=== PATIENT | female | born 1975 | race Caucasian/White ===

== ENCOUNTER 2016-11-15 19:59 | Outpatient (CLI) | payer MEDICARE, MEDICAID ==
--- OUTSIDE RECORDS SUMMARY | 2016-11-15 20:03 | XMS REPORT | Referral Summary ---
Author Organization Unknown Address Unknown Phone Unavailable Encounter [facility] [id number] Date(s): 09/28/14 - 10/07/14 [facility] [address] [place] [address] Discharge Diagnosis: Hypokalemia Discharge Diagnosis: Hypoglycemia Discharge Diagnosis: Dysphagia Discharge Diagnosis: Nausea & vomiting Discharge Diagnosis: Hiatal hernia Discharge Disposition: Home or Self Care Attending Physician: Chris Angeles MD Admitting Physician: Chris Angeles MD Vital Signs Most recent to 1 oldest [Reference Range]: Temperature Axillary 37.0 degC [35.2-36.7 degC] *HI* (10/07/14 11:43 AM) Temperature Oral 37.3 degC [35.8-37.3 degC] (10/07/14 4:31 AM) Apical Heart Rate 97 bpm [60-100 bpm] (09/29/14 4:01 PM) Peripheral Pulse 112 bpm Rate [60-100 bpm] *HI* (10/07/14 11:43 AM) Heart Rate Monitored 111 bpm [60-100 bpm] *HI* (10/05/14 8:00 AM) Respiratory Rate 18 br/min [14-20 br/min] (10/07/14 11:43 AM) Blood Pressure 100/59 mmHg [90-140/60-90 mmHg] (10/07/14 11:43 AM) Mean Arterial 88 mmHg Pressure, Cuff (10/01/14 8:00 PM) Most recent to 1 oldest [Reference Range]: SpO2 95 % (10/07/14 11:43 AM) Problem List Condition Effective Dates Status Health Status Informant Acute Active pain(Confirmed) Alteration in Active nutrition(Confirmed) 1 At risk for Active aspiration(Confirmed )2 At risk for Active injury(Confirmed)3 At risk of pressure Active sore(Confirmed) 1Problem added automatically by system based on initiation of Alteration in Nutrition Plan of [id number] added automatically by system based on initiation of At Risk for Aspiration Plan of [id number] added automatically by system based on initiation of Risk for Injury Plan of Care Allergies, Adverse Reactions, Alerts Substance Reaction Severity Status meperidine Unknown Active metoclopramide Unknown Active Medications acetaminophen-diphenhydrAMINE 500 mg-25 mg oral tablet 1 tabs, Oral, Bedtime (once a day), 0 Refill(s) Start Date: 09/28/14 Status: Orderedbaclofen 10 mg, Oral, TID, 0 Refill(s) Start Date: 09/28/14 Status: Orderedbenzocaine topical gel See Instructions, Mouth Sores, Apply once every 6 hours as need for mouth sores , # 1 Each, 2 Refill(s), Pharmacy: [facility] Special Instructions: Apply once every 6 hours as need for mouth sores Start Date: 10/07/14 Status: OrderedCeleXA 40 mg, Oral, Daily, 0 Refill(s) Start Date: 09/28/14 Status: OrderedDebrox 6.5% otic solution 5 drops, Ear-Both, qMonth, every month twice daily, 0 Refill(s) Special Instructions: every month twice daily Start Date: 09/28/14 Status: OrderedDepo-Provera 150 mg, IntraMuscular, q3mo, 0 Refill(s) Start Date: 09/28/14 Status: OrderedDetrol LA 2 mg oral capsule, extended release 1 caps, Oral, Daily, 0 Refill(s) Start Date: 09/28/14 Status: OrderedFlintstones Multivitamins 1 tabs, Chewed, Daily, 0 Refill(s) Start Date: 09/28/14 Status: OrderedLidocaine Viscous 2% mucous membrane solution 5 mL, Topical, q6hr, as needed for mouth sore pain, X 28 days, # 560 mL, 3 Refill(s), Pharmacy: [facility] Start Date: 10/07/14 Stop Date: 01/27/15 Status: OrderedMiraLax 8.5 g, Oral, MWF, 0 Refill(s) Start Date: 09/28/14 Status: OrderedPriLOSEC 20 mg, Oral, Daily, 0 Refill(s) Start Date: 09/28/14 Status: OrderedSEROquel 25 mg, Oral, TID, 0 Refill(s) Start Date: 09/28/14 Status: OrderedTheraTears ophthalmic solution 1 drops, Eye-Both, BID, as needed for dry eyes, # 20 Each, 3 Refill(s), Pharmacy : [facility] Start Date: 10/07/14 Stop Date: 02/04/15 Status: Orderedtrihexyphenidyl 2 mg oral tablet 1 tabs, Oral, TID, # 270 Each, 0 Refill(s) Start Date: 09/28/14 Status: OrderedTriple Antibiotic topical ointment 1 nayeli, Topical, BID, 0 Refill(s) Start Date: 09/28/14 Status: OrderedTylenol Caplet 325 mg, Oral, q4hr, as needed for pain, 0 Refill(s) Start Date: 09/28/14 Status: OrderedViactiv Soft Calcium Chews oral tablet, chewable 1 tabs, Oral, Daily, 0 Refill(s) Start Date: 09/28/14 Status: OrderedXanax 0.5 mg, Oral, Daily, as needed for anxiety, 0 Refill(s) Start Date: 09/28/14 Status: OrderedZofran 4 mg oral tablet 1 tabs, Oral, q6hr, as needed for nausea/vomiting, X 30 days, # 120 tabs, 1 Refill(s), Pharmacy: [facility], 1 tabs Oral q6hr,x30 days,PRN:as needed for nausea/vomiting Start Date: 10/07/14 Stop Date: 12/06/14 Status: Ordered Results Blood Gases Most recent to 1 oldest [Reference Range]: pH [7.35-7.45] 7.44 (10/04/14 12:30 PM) pCO2 Art [35-45 36 mmHg mmHg] (10/04/14 12:30 PM) Arterial PO2 [80-100 102 mmHg mmHg] *HI* (10/04/14 12:30 PM) Bicarbonate [22-26 24 mEq/L mEq/L] (10/04/14 12:30 PM) Base Excess Art 0 [0-2] (10/04/14 12:30 PM) SaO2 Art [90.0-97.0 98.1 % %] *HI* (10/04/14 12:30 PM) LPM Art 3.0 L/min (10/04/14 12:30 PM) O2 Panel Nasal Cannula (10/04/14 12:30 PM) Spec Site Femoral-R (10/04/14 12:30 PM) Hematology Most recent to 1 oldest [Reference Range]: WBC [4.8-10.8 K/uL] 6.5 K/uL (10/07/14 5:04 AM) RBC [4.00-5.20 M/uL] 4.89 M/uL (10/07/14 5:04 AM) Hgb [12.0-16.0 13.2 gm/dL gm/dL] (10/07/14 5:04 AM) Hct [37.0-47.0 %] 41.3 % (10/07/14 5:04 AM) MCV [82.0-99.0 fL] 84.5 fL (10/07/14 5:04 AM) MCH [27.0-32.0 pg] 27.0 pg (10/07/14 5:04 AM) MCHC [32.0-36.0 32.0 gm/dL gm/dL] (10/07/14 5:04 AM) RDW [11.5-14.5 %] 13.9 % (10/07/14 5:04 AM) Platelet [150-400 254 K/uL K/uL] (10/07/14 5:04 AM) MPV [9.4-12.4 fL] 11.7 fL (10/07/14 5:04 AM) Immature 0.2 % Granulocytes (10/05/14 5:35 AM) [0.0-1.0 %] Neutrophils [51-75 79 % %] *HI* (10/05/14 5:35 AM) Lymphocytes [20-46 12 % %] *LOW* (10/05/14 5:35 AM) Monocytes [4-11 %] 7 % (10/05/14 5:35 AM) Eosinophils [0-4 %] 3 % (10/05/14 5:35 AM) Basophils [0-2 %] 0 % (10/05/14 5:35 AM) Neutro Absolute 8.37 THOUS [1.90-7.00 THOUS] *HI* (10/05/14 5:35 AM) Lymph Absolute 1.24 THOUS [0.80-3.30 THOUS] (10/05/14 5:35 AM) Wharton Absolute 0.71 THOUS [0.30-1.00 THOUS] (10/05/14 5:35 AM) Eos Absolute 0.30 THOUS [0.00-0.50 THOUS] (10/05/14 5:35 AM) Baso Absolute 0.02 THOUS [0.00-0.20 THOUS] (10/05/14 5:35 AM) Nucleated RBC 0.0 /100 WBC Automated [0 /100 (10/05/14 5:35 AM) WBC] Coagulation Most recent to 1 oldest [Reference Range]: INR [0.9-1.2] 1.4 *HI* (09/29/14 12:00 PM) PTT [25.0-35.0] 29.4 (09/28/14 10:32 PM) Chemistry Most recent to 1 oldest [Reference Range]: Sodium Lvl [136-144 141 mEq/L mEq/L] (10/07/14 5:04 AM) Potassium Lvl 4.1 mEq/L [3.6-5.1 mEq/L] (10/07/14 5:04 AM) Chloride [99-109 107 mEq/L mEq/L] (10/07/14 5:04 AM) CO2 [22-32 mEq/L] 29 mEq/L (10/07/14 5:04 AM) AGAP [3-20] 5 (10/07/14 5:04 AM) BUN [4-20 mg/dL] 3 mg/dL *LOW* (10/07/14 5:04 AM) Glucose Lvl [70-100 110 mg/dL mg/dL] *HI* (10/07/14 5:04 AM) Creatinine Lvl 0.44 mg/dL [0.44-1.03 mg/dL] (10/07/14 5:04 AM) eGFR [>60] >60 3 (10/07/14 5:04 AM) Calcium Lvl 9.4 mg/dL [8.6-10.0 mg/dL] (10/07/14 5:04 AM) Albumin Lvl [3.5-4.8 3.4 gm/dL gm/dL] *LOW* (10/07/14 5:04 AM) Total Protein 6.6 gm/dL [6.1-7.9 gm/dL] (10/05/14 5:35 AM) Globulin [1.9-4.3 3.2 gm/dL gm/dL] (10/05/14 5:35 AM) ALT [14-54 unit/L] 30 unit/L (10/05/14 5:35 AM) AST [15-41 unit/L] 17 unit/L (10/05/14 5:35 AM) Alk Phos [26-104 55 unit/L unit/L] (10/05/14 5:35 AM) Bili Total [0.2-1.2 1.1 mg/dL 2 mg/dL] (10/05/14 5:35 AM) Magnesium Lvl 2.1 mg/dL [1.8-2.5 mg/dL] (10/07/14 5:04 AM) Phosphorus [2.4-4.7 4.0 mg/dL 1 mg/dL] (10/07/14 5:04 AM) Cortisol AM [7-18 31 mcg/dL mcg/dL] *HI* (10/03/14 6:31 AM) Screen, Negative Urine NPT (10/01/14 7:21 PM) Blood Glucose, 105 mg/dL Capillary [70-100 *HI* mg/dL] (10/07/14 6:33 AM) U Beta hCG Ql Negative [Negative] (10/01/14 6:23 AM) TSH with Reflex Free 2.02 T4 [0.35-5.50] (09/28/14 10:32 PM) 1Result Comment: High dosages of liposomal Amphotericin B (AmBisome) therapy or other drug preparations that use a liposomal envelope to facilitate drug delivery may cause falsely elevated results for phosphorus.2Result Comment: Naproxen, specifically the metabolite O-desmethylnaproxen, may cause spurious elevation in Total Bilirubin levels.3Result Comment: Multiply eGFR results by 1.21 for race. Immunizations No data available for this section Procedures Procedure Date Related Diagnosis Body Site Arterial puncture, withdrawal of blood for 10/04/14 diagnosis. Esophagogastroduodenoscopy Biopsy1 10/01/14 1auto-populated from documented surgical case Social History Social History Type Response Smoking Status Never smoker Assessment and Plan Extracted from: Title: hold Author: Bala Chong Date: 10/04/14 pt had dobhoff placement this date
== END 2016-11-16 06:37 | disposition home or self-care (01) ==
LOC: SLEEP 19:59
PROVIDERS: ATTEND Nurse Practitioner Family
DX: G47.33 Obstructive sleep apnea (adult) (pediatric) (principal)
CPT/HCPCS: 95810

== ENCOUNTER → 2016-11-30 | Outpatient (CLI) | payer MEDICARE, MEDICAID ==
[2016-11-30 12:49] LABS: BASOPHILS % (AUTO) 1 % (0-10); EOSINOPHILS # (AUTO) 0.2 10^3/uL (0.0-0.3); EOSINOPHILS % (AUTO) 3 % (0-10); LYMPHOCYTES # (AUTO) 1.4 X 10^3 (1.0-4.0); LYMPHOCYTES % (AUTO) 23 % (12-44); MEAN CORPUSCULAR HEMOGLOBIN 28 PG (25-34); MEAN CORPUSCULAR HGB CONC 32 G/DL (32-36); MEAN CORPUSCULAR VOLUME 86 FL (80-99); MEAN PLATELET VOLUME 11.1 FL (7.4-10.4); MONOCYTES # (AUTO) 0.4 X 10^3 (0.0-1.0); MONOCYTES % (AUTO) 7 % (0-12); NEUTROPHILS # (AUTO) 4.1 X 10^3 (1.8-7.8); NEUTROPHILS % (AUTO) 67 % (42-75); PLATELET COUNT 292 10^3/uL (130-400); RED CELL DISTRIBUTION WIDTH 14.2 % (10.0-14.5); WHITE BLOOD COUNT 6.2 10^3/uL (4.3-11.0)
[2016-11-30 13:08] LABS: ALANINE AMINOTRANSFERASE 11 U/L (0-55); ALBUMIN 4.3 G/DL (3.2-4.5); ANION GAP 12 MMOL/L (5-14); ASPARTATE AMINO TRANSFERASE 24 U/L (5-34); BILIRUBIN,TOTAL 0.4 MG/DL (0.1-1.0); BLOOD UREA NITROGEN 10 MG/DL (7-18); BUN/CREATININE RATIO 14; CALCIUM 9.5 MG/DL (8.5-10.1); CARBON DIOXIDE 22 MMOL/L (21-32); CHLORIDE 107 MMOL/L (98-107); CREATININE SERUM 0.71 MG/DL (0.60-1.30); GFR ESTIMATED > 60; GLUCOSE 87 MG/DL (70-105); POTASSIUM 4.6 MMOL/L (3.6-5.0); SODIUM 141 MMOL/L (135-145); TOTAL PROTEIN 7.5 G/DL (6.4-8.2)
== END ==
LOC: CARD 12:26
PROVIDERS: ATTEND Nurse Practitioner Family
DX: R07.9 Chest pain, unspecified (principal)
CPT/HCPCS: 36415; 80053; 84484; 85025; 93005

== ENCOUNTER → 2017-03-20 | Outpatient (CLI) | payer MEDICARE, MEDICAID ==
--- NOTE | 2017-03-20 17:26 | Diagnostic Imaging Report ---
INDICATION: Pain. Two views were obtained. FINDINGS: There is some volume loss in the left femoral head. 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 There is no fracture. Soft tissues are unremarkable. 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 Dictated by: Dictated on workstation # [id number]
== END ==
LOC: RAD 16:26
PROVIDERS: ATTEND Nurse Practitioner Family
DX: M85.88 Other specified disorders of bone density and structure, other site (principal)
CPT/HCPCS: 73502

== ENCOUNTER 2017-05-04 05:23 | Inpatient (IN) | payer MEDICARE, MEDICAID ==
[~2017-05-04] VITALS: Ht 152.4 cm; Wt 56.0 kg
[2017-05-04] MEDS: NS IV 1000 ML 1,000 ML IV SCH ×5 (06:10→22:26)
[2017-05-04 06:13] LABS: BASOPHILS % (AUTO) 0 % (0-10); EOSINOPHILS # (AUTO) 0.2 10^3/uL (0.0-0.3); EOSINOPHILS % (AUTO) 1 % (0-10); LYMPHOCYTES # (AUTO) 0.4 X 10^3 (1.0-4.0); LYMPHOCYTES % (AUTO) 3 % (12-44); MEAN CORPUSCULAR HEMOGLOBIN 27 PG (25-34); MEAN CORPUSCULAR HGB CONC 32 G/DL (32-36); MEAN CORPUSCULAR VOLUME 85 FL (80-99); MEAN PLATELET VOLUME 11.5 FL (7.4-10.4); MONOCYTES # (AUTO) 0.5 X 10^3 (0.0-1.0); MONOCYTES % (AUTO) 4 % (0-12); NEUTROPHILS # (AUTO) 12.2 X 10^3 (1.8-7.8); NEUTROPHILS % (AUTO) 91 % (42-75); PLATELET COUNT 297 10^3/uL (130-400); RED BLOOD COUNT 5.71 10^6/uL (4.35-5.85); RED CELL DISTRIBUTION WIDTH 13.9 % (10.0-14.5); WHITE BLOOD COUNT 13.3 10^3/uL (4.3-11.0)
[2017-05-04] MEDS ORDERED: ONDANSETRON 4 MG/2 ML (SDV) Z0FRAN IVP ONE (06:15)
--- NOTE | 2017-05-04 06:22 | ED Abdominal Pain ---
General Chief Complaint: Abdominal/GI Problems Stated Complaint: VOMITING,DIARRHEA Source of Information: Patient, Caregiver Exam Limitations: Physical Impairments History of Present Illness Time Seen By Provider: 06:18 Initial Comments This 42-year-old white female presents with a history from the [facility] of vomiting and diarrhea that began last night. The history is limited by the patient's speech and I have a difficult time understanding the patient. However the caregiver relates that the patient has had no associated significant fever or chill, throwing up of blood or blood in the stool. The patient took a Zofran which she promptly vomited at the [facility]. There is been no significant change in the patient's medications or diet. Patient has had 4 episodes of emesis and diarrhea. Allergies and Home Medications Allergies Coded Allergies: meperidine (Verified Adverse Reaction, Unknown, 05/04/17) metoclopramide (Verified Adverse Reaction, Unknown, 05/04/17) nitrofurantoin (Verified Adverse Reaction, Unknown, 05/04/17) Uncoded Allergies: SULFA (Adverse Reaction, Unknown, 05/04/17) Review of Systems Constitutional: No chills, No fever EENTM: No Blurred Vision Respiratory: Denies Cough Cardiovascular: Denies Chest Pain Gastrointestinal: Denies Abdomen Distended, Denies Abdominal Pain, Diarrhea, Nausea, Vomiting Genitourinary: Denies Burning, Denies Frequency Musculoskeletal: No back pain Skin: No rash Psychiatric/Neurological: No Symptoms Reported Endocrine: No Symptoms Reported Hematologic/Lymphatic: No Symptoms Reported Past Aitbslw-Oiwoma-Oplkec Hx Patient Social History Recent Foreign Travel: No Contact w/Someone Who Travel: No Reviewed Nursing Assessment Reviewed/Agree w Nursing PMH: Yes Physical Exam Vital Signs VS - Last 72 Hours, by Label 05/04/17 05:43 Temp 97.8 Pulse 109 Resp 20 B/P (MAP) 114/80 Pulse Ox 100 O2 Delivery Room Air Capillary Refill : General Appearance: WD/WN, mild distress HEENT: normal ENT inspection Neck: supple, normal inspection Respiratory: lungs clear, normal breath sounds Cardiovascular: regular rate, rhythm, no murmur Gastrointestinal: normal bowel sounds, non tender, soft, No guarding Extremities: normal range of motion, non-tender, normal inspection Back: normal inspection Neurologic/Psychiatric: other (cerebral palsy and paraplegia.) Skin: normal color, warm/dry Progress/Results/Core Measures Results/Orders Lab Results Laboratory Tests Test 05/04/17 05:57 Range/Units White Blood Count 13.3 H 4.3-11.0 10^3/uL Red Blood Count 5.71 4.35-5.85 10^6/uL Hemoglobin 15.3 11.5-16.0 G/DL Hematocrit 49 35-52 % Mean Corpuscular Volume 85 80-99 FL Mean Corpuscular Hemoglobin 27 25-34 PG Mean Corpuscular Hemoglobin Concent 32 32-36 G/DL Red Cell Distribution Width 13.9 10.0-14.5 % Platelet Count 297 130-400 10^3/uL Mean Platelet Volume 11.5 H 7.4-10.4 FL Neutrophils (%) (Auto) 91 H 42-75 % Lymphocytes (%) (Auto) 3 L 12-44 % Monocytes (%) (Auto) 4 0-12 % Eosinophils (%) (Auto) 1 0-10 % Basophils (%) (Auto) 0 0-10 % Neutrophils # (Auto) 12.2 H 1.8-7.8 X 10^3 Lymphocytes # (Auto) 0.4 L 1.0-4.0 X 10^3 Monocytes # (Auto) 0.5 0.0-1.0 X 10^3 Eosinophils # (Auto) 0.2 0.0-0.3 10^3/uL Basophils # (Auto) 0.0 0.0-0.1 10^3/uL Neutrophils % (Manual) 82 % Lymphocytes % (Manual) 4 % Monocytes % (Manual) 5 % Eosinophils % (Manual) 3 % Band Neutrophils 6 % Blood Morphology Comment NORMAL Sodium Level 144 135-145 MMOL/L Potassium Level 4.1 3.6-5.0 MMOL/L Chloride Level 109 H 98-107 MMOL/L Carbon Dioxide Level 21 21-32 MMOL/L Anion Gap 14 5-14 MMOL/L Blood Urea Nitrogen 15 7-18 MG/DL Creatinine 0.74 0.60-1.30 MG/DL Estimat Glomerular Filtration Rate > 60 BUN/Creatinine Ratio 20 Glucose Level 135 H 70-105 MG/DL Calcium Level 9.6 8.5-10.1 MG/DL Total Bilirubin 0.6 0.1-1.0 MG/DL Aspartate Amino Transf (AST/SGOT) 24 5-34 U/L Alanine Aminotransferase (ALT/SGPT) 11 0-55 U/L Alkaline Phosphatase 82 40-136 U/L Total Protein 8.2 6.4-8.2 GM/DL Albumin 4.5 3.2-4.5 GM/DL Lipase 899 H 8-78 U/L My Orders Orders - DEAN WIGGINS MD Cbc With Automated Diff (05/04/17 06:03) Comprehensive Metabolic Panel (05/04/17 06:03) Lipase (05/04/17 06:03) Ns Iv 1000 Ml (Sodium Chloride 0.9%) (05/04/17 06:15) Ondansetron Injection (Zofran Injectio (05/04/17 06:15) Manual Differential (05/04/17 05:57) Ct Abdomen/Pelvis W (05/04/17 07:21) Fentanyl Injection (Sublimaze Injection (05/04/17 07:30) Iohexol Injection (Omnipaque 350 Mg/Ml 1 (05/04/17 08:00) Ns (Ivpb) (Sodium Chloride 0.9% Ivpb Bag (05/04/17 08:00) Medications Given in ED Current Medications Medications Dose Ordered Sig/Barbara Route Start Time Stop Time Status Last Admin Dose Admin Fentanyl Citrate 50 mcg ONCE ONCE IVP 05/04/17 07:30 05/04/17 07:31 DC 05/04/17 08:05 50 MCG Iohexol 100 ml ONCE ONCE IV 05/04/17 08:00 05/04/17 08:13 DC 05/04/17 07:52 100 ML Ondansetron HCl 4 mg ONCE ONCE IVP 05/04/17 06:15 05/04/17 06:16 DC 05/04/17 06:10 4 MG Sodium Chloride 80 ml ONCE ONCE IV 05/04/17 08:00 05/04/17 08:13 DC 05/04/17 07:52 80 ML Vital Signs/I&O Vital Sign - Last 12Hours 05/04/17 05:43 Temp 97.8 Pulse 109 Resp 20 B/P (MAP) 114/80 Pulse Ox 100 O2 Delivery Room Air Progress Note : Time: 07:22 Progress Note The patient's laboratory evaluation of a leukocytosis and a lipase of 900. A CT of the abdomen and pelvis were ordered. The patient has received IV fluids, fentanyl, and ondansetron. Patient's CT of the abdomen and pelvis filled them and see evidence of acute pathology. Air-fluid levels suggestive of a viral gastroenteritis were noted. Telephone consultation Dr. Chaves agent was admitted for further evaluation and care. Departure Communication Time/Spoke to Admitting Phy: 09:[address] Chaves. Impression Impression: Primary Impression: Pancreatitis Qualified Codes: K85.90 - Acute pancreatitis without necrosis or infection, unspecified Additional Impression: Vomiting and diarrhea Disposition: ADMITTED INPATIENT Condition: Improved Admissions Decision to Admit Reason: Admit from ER (General) Decision to Admit/Date: May 04, 2017 Time/Decision to Admit Time: 09:26 Departure-Patient Inst. Referrals: RICKY CHAVES MD (PCP/Family) Primary Care Physician DEAN WIGGINS MD May 04, 2017 06:22
[2017-05-04 06:23] LABS: ALANINE AMINOTRANSFERASE 11 U/L (0-55); ALBUMIN 4.5 GM/DL (3.2-4.5); ANION GAP 14 MMOL/L (5-14); ASPARTATE AMINO TRANSFERASE 24 U/L (5-34); BILIRUBIN,TOTAL 0.6 MG/DL (0.1-1.0); BLOOD UREA NITROGEN 15 MG/DL (7-18); BUN/CREATININE RATIO 20; CALCIUM 9.6 MG/DL (8.5-10.1); CARBON DIOXIDE 21 MMOL/L (21-32); CHLORIDE 109 MMOL/L (98-107); CREATININE SERUM 0.74 MG/DL (0.60-1.30); GFR ESTIMATED > 60; GLUCOSE 135 MG/DL (70-105); LIPASE 899 U/L (8-78); POTASSIUM 4.1 MMOL/L (3.6-5.0); SODIUM 144 MMOL/L (135-145); TOTAL PROTEIN 8.2 GM/DL (6.4-8.2)
[2017-05-04 06:30] LABS: BAND NEUTROPHILS 6 %; EOSINOPHILS % (MANUAL) 3 %; LYMPHOCYTES % (MANUAL) 4 %; NEUTROPHILS % (MANUAL) 82 %
[2017-05-04] MEDS ORDERED: fentaNYL INJECTION 100 MCG/2 ML AMP IVP ONE (07:30)
[2017-05-04] MEDS ORDERED: IOHEXOL 350 MG/ML 100 ML (OMNIPAQUE 350) VIAL IV ONE (08:00)
[2017-05-04] MEDS ORDERED: NS 100 ML (IVPB) BAG IV ONE (08:00)
--- NOTE | 2017-05-04 08:21 | Diagnostic Imaging Report ---
PROCEDURE: CT abdomen and pelvis with contrast. TECHNIQUE: Multiple contiguous axial images were obtained through the abdomen and pelvis after administration of intravenous contrast. INDICATION: Abdominal pain. Diarrhea. Vomiting. FINDINGS: The liver, gallbladder, and bile ducts are normal. The spleen, pancreas, and adrenals are normal. The kidneys, ureters, and bladder are normal. There are air and fluid-filled loops of small bowel with minimal bowel wall edema suggestive of an enteritis with no evidence of obstruction or perforation evident at this time. There is some fluid in the colon consistent with diarrhea. No edema of the colon is seen. There is a hiatal hernia present. There is no free intraperitoneal air or fluid. IMPRESSION: There are multiple fluid-filled loops of small bowel with some bowel wall edema suggestive of a nonobstructive enteritis. Dictated by: Dictated on workstation # [id number]
[2017-05-04 11:20] VITALS: BP 109/56
--- NOTE | 2017-05-04 12:23 | History & Physicial ---
History of Present Illness History of Present Illness Reason for visit/HPI PT REPORTS THAT SHE STARTED TO FEEL POORLY YESTERDAY EVENING. SHE REPORTS THAT SHE HAD STOMACH UPSET, STARTED BURPING A LOT YESTERDAY EVENING AND THEN HAD COPIOUS AMOUNTS OF EMESIS AND A FEW EPISODES OF DIARRHEA. SHE HAD SIGNIFICANT ABDOMINAL PAIN AND WAS ADMITTED TO THE HOSPITAL AFTER FINDING OUT THAT HER LIPASE LEVELS WERE ELEVATED. Date of Admission May 04, 2017 at 09:30 Date Seen by Provider: May 04, 2017 Time Seen by Provider: 12:30 I consulted on this patient on 05/04/17 12:23 Attending Physician Ricky Chaves MD Admitting Physician Ricky Chaves MD Consult Allergies and Home Medications Allergies Coded Allergies: meperidine (Verified Adverse Reaction, Unknown, 05/04/17) metoclopramide (Verified Adverse Reaction, Unknown, 05/04/17) nitrofurantoin (Verified Adverse Reaction, Unknown, 05/04/17) Uncoded Allergies: SULFA (Adverse Reaction, Unknown, 05/04/17) Home Medications Acetaminophen 500 Mg Tablet, 1,000 MG PO for PAIN-MILD, (Reported) Acetaminophen/Diphenhydramine 1 Each Tablet, 1 EACH PO HS PRN for SLEEP, ( Reported) Albuterol Sulfate 2.5 Mg/3 Ml Vial.neb, 2.5 MG IH Q4H, (Reported) Alprazolam 0.5 Mg Tablet, 0.5 MG PO for ANXIETY, (Reported) Baclofen 10 Mg Tablet, 10 MG PO TID, (Reported) Buspirone HCl 7.5 Mg Tablet, 7.5 MG PO BID, (Reported) Cetirizine HCl 10 Mg Tablet, 10 MG PO DAILY, (Reported) Citalopram Hydrobromide 40 Mg Tablet, 40 MG PO DAILY, (Reported) Famotidine 20 Mg Tablet, 20 MG PO DAILY, (Reported) Furosemide 20 Mg Tablet, 20 MG PO q72 PRN for fluid overload, (Reported) Ondansetron HCl 4 Mg Tab, 4 MG PO Q6H PRN for NAUSEA/VOMITING-1ST LINE, ( Reported) Pantoprazole Sodium 20 Mg Tablet.dr, 20 MG PO DAILY, (Reported) Tizanidine HCl 2 Mg Capsule, 2 MG PO BID, (Reported) Tramadol HCl 50 Mg Tablet, 50 MG PO BID PRN for PAIN-MODERATE, (Reported) Trihexyphenidyl HCl 2 Mg Tablet, 2 MG PO TID, (Reported) Past Bvmiboj-Nmgipv-Gbvvua Hx Patient Social History Marrital Status: Number of Children: 0 Number of living children: 0 Living Status: LIVES AT [place] WITH HER SPOUSE Employed/Student: unemployed Alcohol Use: Denies Use Recreational Drug Use: No Smoking Status: Never a Smoker 2nd Hand Smoke Exposure: No Physical Abuse Screen: No Sexual Abuse: No Recent Foreign Travel: No Contact w/other who traveled: No Recent Hopitalizations: No Recent Infectious Disease Expo: No Immunizations Up To Date Date of Pneumonia Vaccine: Jul 23, 2016 Date of Influenza Vaccine: Jul 23, 2016 Seasonal Allergies Seasonal Allergies: Yes Surgeries No Respiratory No Currently Using CPAP: No Currently Using BIPAP: No Cardiovascular No Neurological Yes Cerebral Palsy, Paralysis Reproductive System : No Hx Reproductive Disorders: No Sexually Transmitted Disease: No HIV/AIDS: No Female Reproductive Disorders: Denies Genitourinary Yes (overactive bladder) Gastrointestinal Yes (nausea and vomiting) Gastroesophageal Reflux, Chronic Constipation Musculoskeletal Yes Contracture Endocrine History of Endocrine Disorders: No Are Your Blood Sugars Over 250: No HEENT History of HEENT Disorders: No Loss of Vision: Denies Hearing Impairment: Denies Cancer No Psychosocial History of Psychiatric Problem: Yes Behavioral Health Disorders: Sleep Difficulties, Anxiety, Depression Integumentary History of Skin or Integumenta: Yes (Rash) Blood Transfusions History of Blood Disorders: No Reviewed Nursing Assessment Reviewed/Agree w Nursing PMH: Yes Family Medical History Significant Family History: Hypertension Constitutional: No chills, No fever, malaise, weakness EENTM: No mouth pain, No throat pain Respiratory: No cough, No dyspnea on exertion, No short of breath Cardiovascular: No chest pain, No palpitations Gastrointestinal: RUQ, LUQ, abdominal pain, diarrhea, nausea, vomiting Genitourinary: no symptoms reported Musculoskeletal: No back pain Skin: no symptoms reported Psychiatric/Neurological: Denies Anxiety, Denies Depressed All Other Systems Reviewed Negative Unless Noted: Yes Physical Exam Vital Signs Vital Sign - Last 12Hours 05/04/17 05:43 Temp 97.8 Pulse 109 Resp 20 B/P (MAP) 114/80 Pulse Ox 100 O2 Delivery Room Air Capillary Refill : Less Than 3 Seconds General Appearance: No Apparent Distress, WD/WN HEENT: PERRL/EOMI Neck: Supple Respiratory: Chest Non Tender, Lungs Clear, Normal Breath Sounds Cardiovascular: Regular Rate, Rhythm, No Edema Gastrointestinal: Abnormal Bowel Sounds (DECREASED BOWEL SOUNDS), Tenderness Rectal: Deferred Extremity: Normal Capillary Refill, Non Tender, No Calf Tenderness, No Pedal Edema Neurologic/Psychiatric: Alert, Oriented x3, No Motor/Sensory Deficits, Normal Mood/Affect Skin: Warm/Dry Lymphatic: No Adenopathy Assessment/Plan Assessment and Plan LEUKOCYTOSIS PANCREATITIS ENTERITIS FEVER DIARRHEA CEREBRAL PALSY CONTRACTURES LEUKOCYTOSIS WITH PANCREATITIS - CONTINUE WITH SUPPORTIVE CARE, NPO EXCEPT FOR ICE CHIPS. CONTINUE WITH IV FLUIDS. ENTERITIS - IMPROVED WITH ZOFRAN, PHENERGAN, IV FLUIDS. FEVER - TYLENOL PRN FOR FEVER. DIARRHEA - IMPROVED. CEREBRAL PALSY - WITH CONTRACTURES - RESTARTED BACLOFEN DVT PROPHYLAXIS WITH LOVENOX AND SCD'S GI PROPHYLAXIS WITH PROTONIX Problems: Admission Diagnosis LEUKOCYTOSIS PANCREATITIS ENTERITIS FEVER DIARRHEA CEREBRAL PALSY CONTRACTURES Clinical Quality Measures DVT/VTE Risk/Contraindication: Risk Factor Score Per Nursin RFS Level Per Nursing on Admit: 4+=Very High RICKY CHAVES MD May 04, 2017 12:23
[2017-05-04] MEDS ORDERED: ALBU2.5V4 IH (12:24)
[2017-05-04] MEDS ORDERED: BACL10TA PO (12:24)
[2017-05-04] MEDS ORDERED: ACET-77 PO (12:24)
[2017-05-04] MEDS ORDERED: ALPR0.5T PO ×2 (12:24→12:35)
[2017-05-04] MEDS ORDERED: ACET-93 PO (12:35)
[2017-05-04] MEDS ORDERED: FURO-125 PO (12:36)
[2017-05-04] MEDS ORDERED: CETI-343 PO (12:36)
[2017-05-04] MEDS ORDERED: PANT20TA2 PO (12:36)
[2017-05-04] MEDS ORDERED: TIZA2CAP9 PO (12:36)
[2017-05-04] MEDS ORDERED: TRAM50TA2 PO (12:36)
[2017-05-04] MEDS ORDERED: CITA40TA19 PO (12:36)
[2017-05-04] MEDS ORDERED: BUSP7.5T5 PO (12:36)
[2017-05-04] MEDS ORDERED: [UNRECOGNIZED DRUG - CODE] PO (12:36)
[2017-05-04] MEDS ORDERED: TRIH2TAB2 PO (12:36)
[2017-05-04] MEDS ORDERED: FAMO20TA3 PO (12:36)
[2017-05-04] MEDS ORDERED: ONDN4T PO (12:36)
[2017-05-04] MEDS: ONDANSETRON 4 MG/2 ML (SDV) Z0FRAN IV PRN ×2 (13:59→21:22)
[2017-05-04] MEDS ORDERED: ALPRAZolam 0.5 MG (XANAX) TAB PO PRN (15:15)
[2017-05-04] MEDS ORDERED: FUROSEMIDE 20 MG (LASIX) TAB PO PRN (15:15)
[2017-05-04] MEDS ORDERED: ACETAMINOPHEN 500 MG TAB (TYLENOL) PO PRN (15:15)
[2017-05-04] MEDS ORDERED: ONDANSETRON 4 MG (ZOFRAN) ORAL DISSOLVE TAB PO PRN (15:15)
[2017-05-04 15:55] VITALS: BP 110/68
[2017-05-04] MEDS ORDERED: RT-ALBUTEROL SULF 2.5 MG/3 ML PRE-MIX VIAL IH SCH (18:00)
[2017-05-04 20:00] VITALS: BP 131/80
[2017-05-04] MEDS: PROMETHAZINE INJ 25 MG/ML (PHENERGAN) AMP IVP PRN (22:26)
[2017-05-04] MEDS: fentaNYL INJECTION 100 MCG/2 ML AMP IV PRN (22:28)
[2017-05-04] MEDS: TRIHEXYPHENIDYL 2 MG (ARTANE) TAB PO SCH (22:32)
[2017-05-04] MEDS: busPIRone 15 MG (BUSPAR) TABLET PO SCH (22:33)
[2017-05-04] MEDS: BACLOFEN 10 MG (LIORESAL) TAB PO SCH (22:33)
[2017-05-05] VITALS: BP 117/57
[2017-05-05 04:00] VITALS: BP 148/63
[2017-05-05 05:15] LABS: BASOPHILS % (AUTO) 1 % (0-10); EOSINOPHILS % (AUTO) 1 % (0-10); LYMPHOCYTES # (AUTO) 0.7 X 10^3 (1.0-4.0); LYMPHOCYTES % (AUTO) 15 % (12-44); MEAN CORPUSCULAR HEMOGLOBIN 27 PG (25-34); MEAN CORPUSCULAR HGB CONC 32 G/DL (32-36); MEAN CORPUSCULAR VOLUME 86 FL (80-99); MEAN PLATELET VOLUME 12.2 FL (7.4-10.4); MONOCYTES # (AUTO) 0.6 X 10^3 (0.0-1.0); MONOCYTES % (AUTO) 13 % (0-12); NEUTROPHILS # (AUTO) 3.1 X 10^3 (1.8-7.8); NEUTROPHILS % (AUTO) 71 % (42-75); PLATELET COUNT 209 10^3/uL (130-400); RED BLOOD COUNT 4.33 10^6/uL (4.35-5.85); RED CELL DISTRIBUTION WIDTH 13.8 % (10.0-14.5); WHITE BLOOD COUNT 4.4 10^3/uL (4.3-11.0)
[2017-05-05 05:39] LABS: ALANINE AMINOTRANSFERASE 7 U/L (0-55); ALBUMIN 3.2 GM/DL (3.2-4.5); ANION GAP 11 MMOL/L (5-14); ASPARTATE AMINO TRANSFERASE 18 U/L (5-34); BILIRUBIN,TOTAL 0.4 MG/DL (0.1-1.0); BLOOD UREA NITROGEN 6 MG/DL (7-18); BUN/CREATININE RATIO 10; CALCIUM 8.1 MG/DL (8.5-10.1); CARBON DIOXIDE 19 MMOL/L (21-32); CHLORIDE 113 MMOL/L (98-107); CREATININE SERUM 0.58 MG/DL (0.60-1.30); GFR ESTIMATED > 60; GLUCOSE 88 MG/DL (70-105); LIPASE 19 U/L (8-78); SODIUM 143 MMOL/L (135-145); TOTAL PROTEIN 5.6 GM/DL (6.4-8.2)
[2017-05-05] MEDS: ONDANSETRON 4 MG/2 ML (SDV) Z0FRAN IV PRN (06:44)
[2017-05-05] MEDS: fentaNYL INJECTION 100 MCG/2 ML AMP IV PRN (06:49)
[2017-05-05 08:20] VITALS: BP 122/76
[2017-05-05] MEDS: PROMETHAZINE INJ 25 MG/ML (PHENERGAN) AMP IVP PRN ×2 (09:15→18:58)
[2017-05-05] MEDS: BACLOFEN 10 MG (LIORESAL) TAB PO SCH ×3 (09:15→21:35)
[2017-05-05] MEDS: PANTOPRAZOLE 20 MG TABLET (PROTONIX) PO SCH (09:15)
[2017-05-05] MEDS: TRIHEXYPHENIDYL 2 MG (ARTANE) TAB PO SCH ×3 (09:15→21:35)
[2017-05-05] MEDS: busPIRone 15 MG (BUSPAR) TABLET PO SCH ×2 (09:15→21:35)
[2017-05-05] MEDS: LORATADINE (CLARITIN) 10 MG TAB PO SCH (09:16)
[2017-05-05] MEDS: FAMOTIDINE 20 MG (PEPCID) TABLET PO SCH (09:16)
[2017-05-05] MEDS: NS IV 1000 ML 1,000 ML IV SCH (09:18)
[2017-05-05] MEDS ORDERED: POTASSIUM CHLORIDE INJ 20 MEQ in NS IV 1000 ML 1,000 ML IV SCH (09:19)
--- NOTE | 2017-05-05 09:19 | Progress Note (SOAP) ---
Subjective Date Seen by Provider: May 05, 2017 Time Seen by Provider: 10:15 Subjective/Events-last exam PT REPORTS THAT SHE IS FEELING BETTER, SHE DENIES CHEST PAIN, SHORTNESS OF BREATH, SHE DOES HAVE SOME ABDOMINAL DISCOMFORT, BUT IT HAS IMPROVED Review of Systems General: Fatigue HEENT: No Head Aches Pulmonary: No Dyspnea Cardiovascular: No: Chest Pain Gastrointestinal: Diarrhea, No: Nausea Neurological: Weakness, No: Confusion Objective Exam Vital Signs Date Time Temp Pulse Resp B/P (MAP) Pulse Ox O2 Delivery O2 Flow Rate FiO2 05/05/17 08:20 97.6 93 18 122/76 94 Room Air 05/05/17 04:00 98.8 104 20 148/63 96 Room Air 05/05/17 00:00 99.0 94 20 117/57 97 Room Air 05/04/17 20:00 100.3 100 24 131/80 96 Room Air 05/04/17 15:55 100.8 107 22 110/68 99 Room Air 05/04/17 11:20 100.3 100 109/56 97 Room Air 05/04/17 11:08 97.8 100 20 100 Room Air Capillary Refill : Less Than 3 Seconds General Appearance: No Apparent Distress, WD/WN HEENT: PERRL/EOMI, Pharynx Normal Neck: Full Range of Motion, Supple Respiratory: Chest Non Tender, Lungs Clear, Normal Breath Sounds Cardiovascular: Regular Rate, Rhythm Gastrointestinal: normal bowel sounds, non tender, soft Extremity: No Pedal Edema Neurologic/Psychiatric: Alert, Oriented x3, No Motor/Sensory Deficits, Normal Mood/Affect Skin: Warm/Dry Lymphatic: No Adenopathy Results Lab Laboratory Tests 05/05/17 04:06: White Blood Count 4.4, Red Blood Count 4.33L, Hemoglobin 11.8#, Hematocrit 37, Mean Corpuscular Volume 86, Mean Corpuscular Hemoglobin 27, Mean Corpuscular Hemoglobin Concent 32, Red Cell Distribution Width 13.8, Platelet Count 209, Mean Platelet Volume 12.2H, Neutrophils (%) (Auto) 71, Lymphocytes (%) (Auto) 15 , Monocytes (%) (Auto) 13H, Eosinophils (%) (Auto) 1, Basophils (%) (Auto) 1, Neutrophils # (Auto) 3.1, Lymphocytes # (Auto) 0.7L, Monocytes # (Auto) 0.6, Eosinophils # (Auto) 0.0, Basophils # (Auto) 0.0, Sodium Level 143, Potassium Level 3.0L, Chloride Level 113H, Carbon Dioxide Level 19L, Anion Gap 11, Blood Urea Nitrogen 6L, Creatinine 0.58L, Estimat Glomerular Filtration Rate > 60, BUN /Creatinine Ratio 10, Glucose Level 88, Calcium Level 8.1L, Total Bilirubin 0.4 , Aspartate Amino Transf (AST/SGOT) 18, Alanine Aminotransferase (ALT/SGPT) 7, Alkaline Phosphatase 58, Total Protein 5.6L, Albumin 3.2, Lipase 19 Microbiology 05/04/17 C. difficile GDH Antigen & Toxins - Final, Complete Assessment/Plan Assessment/Plan Assess & Plan/Chief Complaint LEUKOCYTOSIS PANCREATITIS ENTERITIS FEVER DIARRHEA CEREBRAL PALSY CONTRACTURES HYPOKALEMIA LEUKOCYTOSIS WITH PANCREATITIS - LIPASE NOW NORMAL - CONTINUE WITH SUPPORTIVE CARE, NPO EXCEPT FOR ICE CHIPS. CONTINUE WITH IV FLUIDS. ENTERITIS - IMPROVED WITH ZOFRAN, PHENERGAN, IV FLUIDS. - MONITOR SYMPTOMS, MAY BE ABLE TO GET PATIENT BACK HOME TOMORROW FEVER - TYLENOL PRN FOR FEVER. DIARRHEA - IMPROVED. CEREBRAL PALSY - WITH CONTRACTURES - RESTARTED BACLOFEN HYPOKALEMIA - REPLENISH WITH ORAL AND IV POTASSIUM DVT PROPHYLAXIS WITH LOVENOX AND SCD'S GI PROPHYLAXIS WITH PROTONIX Clinical Quality Measures DVT/VTE Risk/Contraindication: Risk Factor Score Per Nursin RFS Level Per Nursing on Admit: 4+=Very High RICKY MALLOY MD May 05, 2017 09:19
[2017-05-05] MEDS ORDERED: KCL 10 MEQ TAB (MICRO K) PO NR (09:30)
[2017-05-05] MEDS: NS W/KCL 20 MEQ/L 1,000 ML IV SCH ×2 (10:36→23:43)
[2017-05-05] MEDS ORDERED: ALOE170G TP (15:24)
[2017-05-05] MEDS ORDERED: CARB15DR58 OU ×2 (15:24→15:44)
[2017-05-05] MEDS ORDERED: PSYL1PAC10 PO (15:24)
[2017-05-05] MEDS ORDERED: DICL100G18 TP (15:24)
[2017-05-05] MEDS ORDERED: CARB15DR51 EACH EAR (15:24)
[2017-05-05] MEDS ORDERED: L.AC1CAP6 PO (15:24)
[2017-05-05] MEDS ORDERED: PROP10DR2 OU (15:24)
[2017-05-05] MEDS ORDERED: BISA10SU6 RC (15:24)
[2017-05-05] MEDS ORDERED: TOLT2TAB5 PO (15:24)
[2017-05-05] MEDS ORDERED: LIDO15SO2 MM (15:24)
[2017-05-05] MEDS ORDERED: ZINC57OI4 TP (15:24)
[2017-05-05] MEDS ORDERED: MEDR150V4 IM (15:24)
[2017-05-05 15:37] VITALS: BP 112/72
[2017-05-05 16:13] VITALS: BP 114/67
[2017-05-05] MEDS ORDERED: BISACODYL 10 MG SUPP (DULCOLAX) PR PRN (20:30)
[2017-05-05] MEDS ORDERED: ALPRAZolam 0.5 MG (XANAX) TAB PO PRN (20:30)
[2017-05-05] MEDS ORDERED: ACETAMINOPHEN 500 MG TAB (TYLENOL) PO PRN (20:30)
[2017-05-05] MEDS ORDERED: RT-ALBUTEROL SULF 2.5 MG/3 ML PRE-MIX VIAL IH PRN (20:30)
[2017-05-05] MEDS ORDERED: CARBAM PEROX/GLYC/PROP 15 ML DROPS (DEBROX) OT SCH (20:45)
[2017-05-05] MEDS ORDERED: VISCOUS PO PRN (20:45)
[2017-05-05] MEDS ORDERED: PSYLLIUM POWDER (METAMUCIL) 5.8 GM PACKET PO PRN (20:45)
[2017-05-05] MEDS ORDERED: LIDOCAINE 2% PO PRN (20:45)
[2017-05-05] MEDS ORDERED: ZINC OXIDE 16% OINT (BUTT PASTE) 113 GM TUBE TOP PRN (20:45)
[2017-05-05] MEDS ORDERED: ARTIFICAL TEARS 0.4 ML UNIT DOSE (REFRESH PLUS) OU PRN (20:45)
[2017-05-05] MEDS ORDERED: ARTIFICAL TEARS 0.4 ML UNIT DOSE (REFRESH PLUS) OU SCH (21:00)
[2017-05-05] MEDS: DICLOFENAC 1% GEL 100 GM (VOLTAREN) TUBE TOP SCH (21:37)
[2017-05-05] MEDS: ARTIFICAL TEARS 0.4 ML UNIT DOSE (REFRESH PLUS) OU SCH (21:37)
[2017-05-05] MEDS: LACTOBACILLUS Acidoph/Bulgar (LACTINEX/FLORANEX) TAB PO SCH (21:37)
[2017-05-05 23:17] VITALS: BP 121/81
[2017-05-06] VITALS: BP 110/55
[2017-05-06 04:00] VITALS: BP 114/57
[2017-05-06] MEDS: NS W/KCL 20 MEQ/L 1,000 ML IV SCH ×2 (05:44→09:00)
[2017-05-06 08:00] VITALS: BP 111/72
[2017-05-06] MEDS ORDERED: TOLTERODINE LA 2 MG (DETROL LA) CAP PO SCH (09:00)
[2017-05-06] MEDS: ARTIFICAL TEARS 0.4 ML UNIT DOSE (REFRESH PLUS) OU SCH (09:19)
[2017-05-06] MEDS: PANTOPRAZOLE 20 MG TABLET (PROTONIX) PO SCH (09:19)
[2017-05-06] MEDS: LACTOBACILLUS Acidoph/Bulgar (LACTINEX/FLORANEX) TAB PO SCH (09:20)
[2017-05-06] MEDS: TRIHEXYPHENIDYL 2 MG (ARTANE) TAB PO SCH (09:20)
[2017-05-06] MEDS: BACLOFEN 10 MG (LIORESAL) TAB PO SCH (09:21)
[2017-05-06] MEDS: FAMOTIDINE 20 MG (PEPCID) TABLET PO SCH (09:21)
[2017-05-06] MEDS: busPIRone 15 MG (BUSPAR) TABLET PO SCH (09:21)
[2017-05-06] MEDS ORDERED: PROM12.59 PO (09:21)
[2017-05-06] MEDS: LORATADINE (CLARITIN) 10 MG TAB PO SCH (09:22)
--- NOTE | 2017-05-06 09:24 | Discharge Inst-Skilled Nursing ---
Discharge Inst-Skilled NF Patient Instructions Patient Problems: cerebral palsy viral gastroenteritis nausea emesis diarrhea Consult/Follow Up/Orders Skilled NF Admit to: [facility] ([facility]) I certify that SNF services are required to be given on an inpatient basis because of the above named patient's need for alf care on a continuing basis for the conditions(s) for which he/she was receiving inpatient hospital services prior to his/her transfer to the SNF. Correction Facility Order: Nursing Services, Media Marketing Director-Evaluate & Treat, Physical Therapy-Evaluate & Treat Discharge Diet: Other Diet (bland diet x 3 days, then advance as tolerated) Daily Activity as Tolerated: Yes New & Resume Previous Orders Ricky A Anastacio May 06, 2017 09:22 Medication List: Active Scripts Active Promethazine HCl 12.5 Mg Tablet 12.5 Mg PO Q6H PRN Reported Thera Tears (Carboxymethylcellulose Sodium) 15 Ml Drops 2 Drops OU PRN PRN WATERY/TEARING EYES, DRY EYES, IRRITATION Voltaren (Diclofenac Sodium) 100 Gm Gel..gram. 4 Gm TP BID FOR PAIN TO RIGHT SHOULDER AND HIP Thera Tears (Carboxymethylcellulose Sodium) 15 Ml Drops 2 Drop OU HS Systane Ultra 0.4-0.3% Eye Drp (Propylene Glycol/Peg 400) 10 Ml Drops 1 Drop OU TID Probiotic (L.acidoph & Paracasei,B.lactis) 1 Each Capsule 1 Cap PO BID Metamucil Packet (Psyllium Husk (with Sugar)) 3.4 Gm Powd.pack 3.4 Gm PO Q8H PRN Medroxyprogesterone Acetate 150 Mg/1 Ml Vial 150 Mg IM UD RECEIVES INJECTION EVERY 90 DAYS Lidocaine HCl Viscous (Lidocaine HCl) 15 Ml Solution 5 Ml MM Q6H PRN Aloe Vera 170 Gm Gel..gram. TP PRN PRN Diaper Rash (Zinc Oxide) 57 Gm Oint...g. TP Q12H PRN Tolterodine Tartrate 2 Mg Tablet 2 Mg PO BID Bisacodyl 10 Mg Supp.rect 10 Mg RC EVERY 36 HOURS PRN Carbamide Peroxide 15 Ml Drops 5 Drop EACH EAR UD INSTILL 5 DROPS IN EACH EAR TWO TIMES A DAY STARTING ON THE 12TH AND ENDING ON THE 13TH EVERY MONTH. Zofran (Ondansetron HCl) 4 Mg Tab 4 Mg PO Q6H PRN All Day Allergy (Cetirizine HCl) 10 Mg Tablet 10 Mg PO DAILY Pain & Sleep 25-500 mg Caplet (Acetaminophen/Diphenhydramine) 1 Each Tablet 1 Tab PO HS Trihexyphenidyl HCl 2 Mg Tablet 2 Mg PO TID Tramadol HCl 50 Mg Tablet 50 Mg PO BID Tizanidine HCl 2 Mg Capsule 2 Mg PO BID Protonix (Pantoprazole Sodium) 20 Mg Tablet.dr 20 Mg PO DAILY Lasix (Furosemide) 20 Mg Tablet 20 Mg PO EVERY 72 HOURS PRN Acid Due Diligence Coordinator (FAMOTIDINE) (Famotidine) 20 Mg Tablet 20 Mg PO DAILY Celexa (Citalopram Hydrobromide) 40 Mg Tablet 40 Mg PO DAILY Buspirone HCl 7.5 Mg Tablet 7.5 Mg PO BID Xanax (Alprazolam) 0.5 Mg Tablet 0.5 Mg PO Q6H PRN Acetaminophen 500 Mg Tablet 1,000 Mg PO Q8H PRN Baclofen 10 Mg Tablet 10 Mg PO TID Albuterol Sulfate 2.5 Mg/3 Ml Vial.neb 2.5 Mg IH Q4H PRN My orders: Orders - RICKY MALLOY MD Ns W/Kcl 20 Meq/L (Ns Iv W/Kcl 20 Meq/L) (05/05/17 09:30) Acetaminophen Tablet (Tylenol Tablet) (05/05/17 20:30) Alprazolam Tablet (Xanax Tablet) (05/05/17 20:30) Albuterol Pre-Mix Nebs (Rt) (Proventil P (05/05/17 20:30) Bisacodyl Suppository (Dulcolax Supposit (05/05/17 20:30) Carbam Perox/Glycer/Prop Glyc (Debrox Ot (05/05/17 20:45) Tolterodine La Capsule (Detrol La Capsul (05/06/17 09:00) Zinc Oxide 16% Ointment (Butt Paste) (05/05/17 20:45) Lidocaine 2% Viscous 100 Ml (Xylocaine V (05/05/17 20:45) Psyllium Powder (Metamucil Powder) (05/05/17 20:45) Lactobacillus/Bulgaricus Tab (Lactinex (05/05/17 21:00) Carboxymethylcell Ophth Soln (Refresh Pl (05/05/17 21:00) Carboxymethylcell Ophth Soln (Refresh Pl (05/05/17 21:00) Carboxymethylcell Ophth Soln (Refresh Pl (05/05/17 20:45) Diclofenac 1% Gel (Voltaren 1% Gel) (05/05/17 21:00) Peptic Ulcer/[place] (05/06/17 Lunch) Attending D/C Order-Pending (05/06/17 09:18) Nursing Communication (Patient (05/06/17 09:18) RICKY MALLOY MD May 06, 2017 09:24
[2017-05-06] MEDS: DICLOFENAC 1% GEL 100 GM (VOLTAREN) TUBE TOP SCH (10:58)
[2017-05-06 12:00] VITALS: BP 107/57
== END 2017-05-06 12:00 | DRG 440 ==
LOC: EDUNIT# 05:23 → ER 05:24 → 4TH 09:30
PROVIDERS: ADMIT Family Medicine; ATTEND Family Medicine
DX: K85.90 Acute pancreatitis without necrosis or infection, unspecified (principal); K52.9 Noninfective gastroenteritis and colitis, unspecified; G80.9 Cerebral palsy, unspecified; M24.50 Contracture, unspecified joint; G47.9 Sleep disorder, unspecified; F41.9 Anxiety disorder, unspecified; F32.9 Major depressive disorder, single episode, unspecified; N32.81 Overactive bladder; K21.9 Gastro-esophageal reflux disease without esophagitis; J30.2 Other seasonal allergic rhinitis
CPT/HCPCS: 36415; 74177; 80053; 83690; 85007; 85025; 85027; 87324; 87449; 96361; 96374; 96375

== ENCOUNTER → 2017-10-12 | Outpatient (CLI) | payer MEDICARE, MEDICAID ==
[~2017-10-12] MED LIST: ACET-77 PO; ACET-93 PO; ALBU2.5V4 IH; ALOE170G TP; ALPR0.5T PO; BACL10TA PO; BISA10SU6 RC; BUSP7.5T5 PO; CARB15DR51 EACH EAR; CARB15DR58 OU; CETI-343 PO; CITA40TA19 PO; DICL100G18 TP; FAMO20TA3 PO; FURO-125 PO; L.AC1CAP6 PO; LIDO15SO2 MM; MEDR150V4 IM; ONDN4T PO; PANT20TA2 PO; PROM12.59 PO; PROP10DR2 OU; PSYL1PAC10 PO; TIZA2CAP9 PO; TOLT2TAB5 PO; TRAM50TA2 PO; TRIH2TAB2 PO; ZINC57OI4 TP; [UNRECOGNIZED DRUG - CODE] PO
[2017-10-12 10:28] LABS: BILIRUBIN,URINE NEGATIVE (NEGATIVE); CLARITY,URINE SLIGHTLY CLOUDY; COLOR,URINE YELLOW; GLUCOSE, URINE (UA) NEGATIVE (NEGATIVE); KETONES,URINE NEGATIVE (NEGATIVE); LEUKOCYTE ESTERASE ,URINE 2+ (NEGATIVE); NITRITE,URINE NEGATIVE (NEGATIVE); PH,URINE 6.5 (5-9); PROTEIN,URINE NEGATIVE (NEGATIVE); UROBILINOGEN,URINE NORMAL (NORMAL)
[2017-10-12 10:36] LABS: RBC,URINE RARE /HPF
[2017-10-12 10:37] LABS: BACTERIA,URINE FEW /HPF
== END ==
PROVIDERS: ATTEND Family Medicine
DX: R82.90 Unspecified abnormal findings in urine (principal)
CPT/HCPCS: 81000; 87088

== ENCOUNTER 2020-08-22 14:15 | Outpatient (CLI) | payer MEDICARE, MEDICAID ==
[~2020-08-22] VITALS: Ht 162 cm; Wt 72.7 kg
[~2020-08-22 14:15] MED LIST changes: -ACET-77 PO; +ACET-78 PO; -BISA10SU6 RC; +BISA10SU8 RC; -CETI-343 PO; +CETI10TA4 PO; -LIDO15SO2 MM; +LIDO20SO23 MM; +PROM12.511 PO; -PROM12.59 PO; -TRAM50TA2 PO; +TRM50T PO
[2020-08-22 14:23] VITALS: BP 133/75
[2020-08-22] MEDS ORDERED: BAMLANIVIMAB 700 MG in NS 200 ML IV ONE (14:30)
[2020-08-22] MEDS ORDERED: EPINEPHrine INJECTION 1 MG/ML AMP IM PRN (14:30)
[2020-08-22] MEDS ORDERED: diphenhydrAMINE 50 MG/ML INJ (BENADRYL) IV PRN (14:30)
[2020-08-22 16:00] VITALS: BP 100/84
--- NOTE | 2020-08-22 16:00 | NUR ---
[facility] NOTIFIED PT WOULD BE READY TO BE PICKED UP AT [id number].
== END 2020-08-22 17:05 ==
LOC: INFUSION 14:15
PROVIDERS: ATTEND Nurse Practitioner Family
DX: U07.1 COVID-19 (principal)